=== PATIENT | male | born 1970 | race Caucasian/White ===

== ENCOUNTER 2016-07-30 21:49 | Emergency (ER) | payer MEDICAID ==
[~2016-07-30] VITALS: Ht 175.3 cm; Wt 102.0 kg
[2016-07-30] MEDS ORDERED: ACETAMINOPHEN 500 MG TABLET PO ONE (22:30)
[2016-07-30] MEDS ORDERED: SODIUM CHLORIDE 0.9% 1,000ML IVBOLUS ONE (22:30)
[2016-07-30] MEDS ORDERED: IBUPROFEN 200 MG TABLET ONE (22:39)
[2016-07-30] MEDS ORDERED: ACETAMINOPHEN 500 MG TABLET ONE (22:39)
[2016-07-30] MEDS: IBUPROFEN 200 MG TABLET PO ONE ×2 (22:42→22:45)
[2016-07-30 22:45] LABS: ASPARTATE AMINO TRANSFERASE 30 U/L (15-37); BLOOD UREA NITROGEN 11 mg/dL (7-18)
[2016-07-30 23:07] LABS: HEMOGLOBIN 13.4 g/dL (13.7-18.0)
[2016-07-31 00:32] VITALS: BP 112/68
== END 2016-07-31 00:39 | disposition home or self-care (01) ==
LOC: ED 23:59
DX: R50.9 Fever, unspecified (principal); R05 Cough; Z87.891 Personal history of nicotine dependence
CPT/HCPCS: 36415; 71010; 80053; 81003; 85025; 96360; 96361; 99285; J7030

== ENCOUNTER 2016-08-17 13:02 | Emergency (ER) | payer MEDICAID ==
[~2016-08-17] VITALS: Ht 175.3 cm; Wt 100.0 kg
[2016-08-17 13:03] VITALS: BP 140/92
[2016-08-17] MEDS ORDERED: OXYcodone/APAP 5/325MG TABLET PO ONE (14:00)
[2016-08-17] MEDS ORDERED: METHOCARBAMOL 750 MG TABLET PO ONE (14:00)
[2016-08-17] MEDS ORDERED: OXYcodone/APAP 5/325MG TABLET ONE (14:17)
[2016-08-17] MEDS ORDERED: METHOCARBAMOL 750 MG TABLET ONE (14:18)
== END 2016-08-17 15:05 | disposition home or self-care (01) ==
LOC: ED 15:04
DX: S33.5XXA Sprain of ligaments of lumbar spine, initial encounter (principal); M47.896 Other spondylosis, lumbar region; M54.41 Lumbago with sciatica, right side; W10.9XXA Fall (on) (from) unspecified stairs and steps, initial encounter; Y93.89 Activity, other specified; Y99.8 Other external cause status; Y92.099 Unspecified place in other non-institutional residence as the place of occurrence of the external cause
CPT/HCPCS: 72110; 99284

== ENCOUNTER 2016-08-20 15:33 | Inpatient (IN) | payer MEDICAID ==
[~2016-08-20] VITALS: Ht 175.3 cm; Wt 99.0 kg
[2016-08-20] MEDS ORDERED: DIAZEPAM 5 MG TABLET ONE (16:15)
[2016-08-20] MEDS ORDERED: OXYcodone/APAP 5/325MG TABLET ONE (16:15)
[2016-08-20] MEDS ORDERED: OXYcodone/APAP 5/325MG TABLET PO ONE (16:30)
[2016-08-20] MEDS ORDERED: DIAZEPAM 5 MG TABLET PO ONE (16:30)
[2016-08-20] MEDS ORDERED: SODIUM CHLORIDE 0.9% 1,000 ML IV ONE (18:13)
[2016-08-20] MEDS ORDERED: SODIUM CHLORIDE FLUSH 10ML SYR IVF ONE (18:30)
[2016-08-20] MEDS ORDERED: HYDR-3240 PO (18:35)
[2016-08-20] MEDS ORDERED: METH750T2 PO (18:35)
[2016-08-20 18:47] LABS: BLOOD UREA NITROGEN 16 mg/dL (7-18)
[2016-08-20] MEDS ORDERED: DOCUSATE 100 MG CAPSULE PO PRN (20:30)
[2016-08-20] MEDS ORDERED: BISACODYL 10 MG SUPP PR PRN (20:30)
[2016-08-20] MEDS ORDERED: ONDANSETRON ODT 4 MG PO PRN (20:30)
[2016-08-20] MEDS ORDERED: TRAZODONE 50MG TABLET PO PRN (20:30)
[2016-08-20] MEDS ORDERED: ACETAMINOPHEN 325 MG TABLET PO PRN (20:30)
[2016-08-20] MEDS ORDERED: LABETALOL 5MG/ML, 20ML IV PRN (20:30)
[2016-08-20 20:56] VITALS: BP 126/76
[2016-08-20] MEDS: SODIUM CHLORIDE 0.9% 1,000 ML IV SCH (21:08)
[2016-08-20] MEDS: DEXAMETHASONE 4 MG/ML, 1ML IVPush SCH (21:58)
[2016-08-20] MEDS: HEPARIN 5,000 UNITS/ML, 1ML SQ SCH (21:58)
[2016-08-20] MEDS: METHOCARBAMOL 750 MG TABLET PO SCH (22:19)
[2016-08-21 00:39] VITALS: BP 143/78
[2016-08-21] MEDS: HYDROcodone/APAP 5/325 TABLET PO PRN ×3 (00:46→22:23)
[2016-08-21] MEDS: DEXAMETHASONE 4 MG/ML, 1ML IVPush SCH ×4 (03:25→22:18)
[2016-08-21] MEDS: METHOCARBAMOL 750 MG TABLET PO SCH ×4 (05:09→21:52)
[2016-08-21] MEDS: HEPARIN 5,000 UNITS/ML, 1ML SQ SCH ×2 (05:09→13:00)
[2016-08-21] MEDS: SODIUM CHLORIDE 0.9% 1,000 ML IV SCH ×2 (06:07→17:57)
[2016-08-21 06:20] LABS: BLOOD UREA NITROGEN 17 mg/dL (7-18)
[2016-08-21 06:24] LABS: ASPARTATE AMINO TRANSFERASE 12 U/L (15-37)
[2016-08-21 07:11] VITALS: BP 137/77
[2016-08-21 09:58] LABS: BLOOD UREA NITROGEN 18 mg/dL (7-18)
[2016-08-21] MEDS ORDERED: BUPIVACAINE/PF-EPI 0.25% 1:200K ONE (10:52)
[2016-08-21] MEDS ORDERED: THROMBIN 5,000 UNIT VIAL TP ONE (10:52)
[2016-08-21] MEDS ORDERED: BACITRACIN 50,000 UNIT ONE (10:52)
[2016-08-21] MEDS ORDERED: FENTANYL PF 250 MCG/5ML ONE ×3 (11:51→13:16)
[2016-08-21] MEDS ORDERED: MIDAZOLAM 1 MG/ML, 2ML ONE (12:03)
[2016-08-21] MEDS ORDERED: ONDANSETRON 2MG/ML, 2ML ONE (12:25)
[2016-08-21] MEDS ORDERED: DEXAMETHASONE 4 MG/ML, 1ML ONE (12:25)
[2016-08-21] MEDS ORDERED: ROCURONIUM 10 MG/ML ONE (12:25)
[2016-08-21] MEDS ORDERED: METOCLOPRAMIDE 5 MG/ML, 2ML ONE (12:25)
[2016-08-21] MEDS ORDERED: PROPOFOL 10 MG/ML, 50ML ONE (12:25)
[2016-08-21] MEDS ORDERED: CEFAZOLIN 1,000 MG ONE (12:25)
[2016-08-21] MEDS ORDERED: LABETALOL 5MG/ML, 20ML ONE (12:25)
[2016-08-21] MEDS ORDERED: HYDROmorphone 2 MG/ML, 1ML ONE ×2 (12:56→16:16)
[2016-08-21] MEDS ORDERED: EPHEDRINE 50 MG/ML, 1ML IVPush PRN (13:30)
[2016-08-21] MEDS ORDERED: ONDANSETRON 2MG/ML, 2ML IVPush PRN (13:30)
[2016-08-21] MEDS ORDERED: METOPROLOL 1 MG/ML, 5ML IV PRN (13:30)
[2016-08-21] MEDS ORDERED: LABETALOL 5MG/ML, 20ML IV PRN (13:30)
[2016-08-21] MEDS ORDERED: ACETAMINOPHEN 325 MG TABLET PO PRN (13:30)
[2016-08-21] MEDS ORDERED: OXYcodone 5 MG/5 ML ORAL.SOL UDC PO PRN (13:30)
[2016-08-21] MEDS ORDERED: hydrALAzine 20 MG/ML, 1ML IV PRN (13:30)
[2016-08-21] MEDS ORDERED: MEPERIDINE/PF 25MG/0.5ML IVPush PRN (13:30)
[2016-08-21] MEDS ORDERED: BACITRACIN OINT 500U/GM, 15 GM ONE (15:08)
[2016-08-21] MEDS ORDERED: FENTANYL PF 100 MCG/2ML ONE (15:26)
[2016-08-21] MEDS ORDERED: OXYcodone 5 MG/5 ML ORAL.SOL UDC ONE (15:26)
[2016-08-21] MEDS ORDERED: ACETAMINOPHEN 650 MG/20.3 ML UDC ONE (15:26)
[2016-08-21] MEDS: FENTANYL PF 100 MCG/2ML IV PRN ×2 (15:40→15:50)
[2016-08-21] MEDS ORDERED: MEPERIDINE/PF 25MG/0.5ML ONE (15:46)
[2016-08-21] MEDS ORDERED: CEFAZOLIN 1,000 MG IM SCH (16:00)
[2016-08-21] MEDS: HYDROmorphone 1 MG/ML, 1ML IV PRN ×2 (16:19→16:29)
[2016-08-21 17:30] VITALS: BP 133/73
[2016-08-21 20:00] VITALS: BP 123/65
[2016-08-21] MEDS: CEFAZOLIN PMX 1GM/50ML 50 ML IV SCH (21:46)
[2016-08-22] VITALS: BP 121/80
[2016-08-22 02:00] VITALS: BP 132/75
[2016-08-22] MEDS: DEXAMETHASONE 4 MG/ML, 1ML IVPush SCH ×4 (02:50→21:09)
[2016-08-22] MEDS: SODIUM CHLORIDE 0.9% 1,000 ML IV SCH ×3 (02:50→23:50)
[2016-08-22] MEDS: CEFAZOLIN PMX 1GM/50ML 50 ML IV SCH ×3 (05:35→21:06)
[2016-08-22] MEDS: HYDROcodone/APAP 5/325 TABLET PO PRN ×3 (05:39→21:10)
[2016-08-22] MEDS: METHOCARBAMOL 750 MG TABLET PO SCH ×4 (05:39→21:09)
[2016-08-22 08:29] VITALS: BP 122/74
[2016-08-22] MEDS: DIAZEPAM 5 MG/ML, 2ML IV PRN (09:07)
[2016-08-22 13:49] VITALS: BP 109/63
[2016-08-22 18:40] VITALS: BP 133/73
[2016-08-22] MEDS: DOCUSATE 100 MG CAPSULE PO SCH (21:09)
[2016-08-23] MEDS: DIAZEPAM 5 MG/ML, 2ML IV PRN ×4 (00:24→18:27)
[2016-08-23] MEDS: HYDROcodone/APAP 5/325 TABLET PO PRN ×4 (02:47→19:45)
[2016-08-23] MEDS: DEXAMETHASONE 4 MG/ML, 1ML IVPush SCH ×4 (03:02→21:27)
[2016-08-23 03:08] VITALS: BP 127/75
[2016-08-23] MEDS: CEFAZOLIN PMX 1GM/50ML 50 ML IV SCH ×3 (05:08→21:27)
[2016-08-23] MEDS: METHOCARBAMOL 750 MG TABLET PO SCH ×4 (06:24→21:27)
[2016-08-23 07:35] VITALS: BP 131/69
[2016-08-23] MEDS: DOCUSATE 100 MG CAPSULE PO SCH ×2 (07:58→19:45)
[2016-08-23] MEDS: SODIUM CHLORIDE 0.9% 1,000 ML IV SCH ×2 (12:52→22:30)
[2016-08-23 15:25] VITALS: BP 132/79
[2016-08-23 20:01] VITALS: BP 96/57
[2016-08-24] MEDS: HYDROcodone/APAP 5/325 TABLET PO PRN ×3 (00:48→17:54)
[2016-08-24 00:56] VITALS: BP 135/85
[2016-08-24] MEDS: SODIUM CHLORIDE 0.9% 1,000 ML IV SCH ×2 (03:15→17:54)
[2016-08-24] MEDS: DEXAMETHASONE 4 MG/ML, 1ML IVPush SCH ×4 (03:15→22:05)
[2016-08-24] MEDS: DIAZEPAM 5 MG/ML, 2ML IV PRN (03:18)
[2016-08-24 06:31] LABS: BLOOD UREA NITROGEN 13 mg/dL (7-18)
[2016-08-24] MEDS: CEFAZOLIN PMX 1GM/50ML 50 ML IV SCH ×3 (06:33→22:05)
[2016-08-24] MEDS: METHOCARBAMOL 750 MG TABLET PO SCH ×4 (06:33→22:05)
[2016-08-24 07:31] VITALS: BP 96/58
[2016-08-24] MEDS: POLYETHYLENE GLYCOL 17 GM PACKET PO PRN (08:17)
[2016-08-24] MEDS: DOCUSATE 100 MG CAPSULE PO SCH ×2 (08:17→22:05)
[2016-08-24] MEDS ORDERED: DIAZEPAM 5 MG TABLET ONE (15:53)
[2016-08-24] MEDS: DIAZEPAM 10 MG TABLET PO PRN (15:59)
[2016-08-24 16:06] VITALS: BP 127/79
[2016-08-24 20:01] VITALS: BP 121/82
[2016-08-25] MEDS: HYDROcodone/APAP 5/325 TABLET PO PRN ×4 (00:31→13:00)
[2016-08-25] MEDS: DIAZEPAM 10 MG TABLET PO PRN ×2 (00:31→07:58)
[2016-08-25 03:11] VITALS: BP 132/58
[2016-08-25] MEDS: DEXAMETHASONE 4 MG/ML, 1ML IVPush SCH ×2 (04:08→07:58)
[2016-08-25] MEDS: SODIUM CHLORIDE 0.9% 1,000 ML IV SCH (04:30)
[2016-08-25] MEDS: CEFAZOLIN PMX 1GM/50ML 50 ML IV SCH ×2 (06:15→12:56)
[2016-08-25] MEDS: METHOCARBAMOL 750 MG TABLET PO SCH ×2 (06:15→11:12)
[2016-08-25] MEDS: DOCUSATE 100 MG CAPSULE PO SCH (07:58)
[2016-08-25 08:05] VITALS: BP 123/83
[2016-08-25 12:24] VITALS: BP 128/81
[2016-08-25] MEDS ORDERED: METH750T2 PO (12:49)
[2016-08-25] MEDS ORDERED: DIAZ10TA4 PO (12:49)
[2016-08-25] MEDS ORDERED: HYDR-3240 PO (12:49)
[2016-08-25] MEDS: POLYETHYLENE GLYCOL 17 GM PACKET PO PRN (13:05)
[2016-08-25] MEDS ORDERED: METOCLOPRAMIDE 5 MG/ML, 2ML IVPush ONE (14:30)
[2016-08-25 15:15] VITALS: BP 126/84
== END 2016-08-25 15:30 | disposition home or self-care (01) | DRG 516 ==
LOC: ED 19:10 → EDIP 19:15 → 3NE 20:49 → 4NOR 08-21 17:30 → DCLOUNGE 08-25 15:25
PROVIDERS: ADMIT Internal Medicine; ATTEND Internal Medicine
PROC: 01NB0ZZ Release Lumbar Nerve, Open Approach (ICD-10-PCS; principal; 2016-08-21 11:00)
DX: M48.06 Spinal stenosis, lumbar region (principal); G83.4 Cauda equina syndrome; E78.5 Hyperlipidemia, unspecified; D75.89 Other specified diseases of blood and blood-forming organs; E66.3 Overweight; M51.16 Intervertebral disc disorders with radiculopathy, lumbar region; Z82.49 Family history of ischemic heart disease and other diseases of the circulatory system; Z68.32 Body mass index [BMI] 32.0-32.9, adult
CPT/HCPCS: 36415; 72100; 72158; 80048; 80053; 80061; 82040; 83735; 84439; 84443; 85025; 85610; 86850; 86900; 93005; 99285; C1729; J0690; J1100; J1170; J1644; J2175; J2250; J2405; J2704; J3010; J3360; J2765; J7030; J7512

== ENCOUNTER 2016-09-01 17:40 | Emergency (ER) | payer MEDICAID ==
[~2016-09-01] VITALS: Ht 175.3 cm; Wt 96.2 kg
[~2016-09-01 17:40] MED LIST: DIAZ10TA4 PO; HYDR-3240 PO; METH750T2 PO
[2016-09-01 18:24] LABS: BLOOD UREA NITROGEN 11 mg/dL (7-18)
[2016-09-01 18:28] VITALS: BP 125/46
[2016-09-01] MEDS ORDERED: OXYcodone/APAP 5/325MG TABLET PO ONE (18:30)
[2016-09-01] MEDS ORDERED: DIAZEPAM 5 MG TABLET PO ONE (18:30)
[2016-09-01] MEDS ORDERED: KETOROLAC 30 MG/1 ML IM ONE (18:30)
[2016-09-01] MEDS ORDERED: DIAZEPAM 5 MG TABLET ONE (18:39)
[2016-09-01] MEDS ORDERED: OXYcodone/APAP 5/325MG TABLET ONE (18:39)
[2016-09-01] MEDS ORDERED: KETOROLAC 30 MG/1 ML ONE (18:39)
== END 2016-09-01 18:58 | disposition home or self-care (01) ==
LOC: ED 18:52
DX: G89.29 Other chronic pain (principal); M54.5 Low back pain; E78.5 Hyperlipidemia, unspecified
CPT/HCPCS: 36415; 80048; 82040; 85025; 96372; 99284; J1885

== ENCOUNTER → 2016-09-04 | Outpatient (CLI) | payer MEDICAID | END | disposition home or self-care (01) | LOC: RAD 12:50 → EDSTATUS 14:15 | PROVIDERS: ATTEND Neurological Surgery | DX: M48.07 Spinal stenosis, lumbosacral region (principal); M51.27 Other intervertebral disc displacement, lumbosacral region; M51.36 Other intervertebral disc degeneration, lumbar region; M40.46 Postural lordosis, lumbar region; L76.22 Postprocedural hemorrhage of skin and subcutaneous tissue following other procedure; M25.78 Osteophyte, vertebrae; R60.0 Localized edema; Z98.890 Other specified postprocedural states | CPT/HCPCS: 72148 ==

== ENCOUNTER → 2016-09-05 | Outpatient (CLI) | payer MEDICAID ==
[~2016-09-05] MED LIST changes: +LIDOCAINE 1%, 20ML ONE
[2016-09-05 15:42] LABS: CYTOLOGY BODY FLUID RECD INTO PATHOLOGY; CYTOLOGY BODY FLUID SOURCE ASCITES FLUID
== END | disposition home or self-care (01) ==
LOC: RAD 13:45
PROVIDERS: ATTEND Neurological Surgery
DX: L76.22 Postprocedural hemorrhage of skin and subcutaneous tissue following other procedure (principal)
CPT/HCPCS: 10030; 76942; 87070; 87075; 87205; 88112; J3490

== ENCOUNTER 2017-01-07 06:29 | Emergency (ER) | payer BC, MEDICAID ==
[~2017-01-07] VITALS: Ht 175.3 cm; Wt 95.5 kg
[~2017-01-07 06:29] MED LIST changes: -LIDOCAINE 1%, 20ML ONE
[2017-01-07] MEDS ORDERED: KETOROLAC 30 MG/1 ML ONE (06:57)
[2017-01-07] MEDS ORDERED: DIPHENHYDRAMINE 50 MG/ML, 1ML ONE (06:58)
[2017-01-07] MEDS ORDERED: METOCLOPRAMIDE 5 MG/ML, 2ML ONE (06:58)
[2017-01-07] MEDS ORDERED: SODIUM CHLORIDE FLUSH 10ML SYR IVF ONE (07:00)
[2017-01-07] MEDS ORDERED: KETOROLAC 30 MG/1 ML IVPush ONE (07:00)
[2017-01-07] MEDS ORDERED: SODIUM CHLORIDE 0.9% 1,000ML IVBOLUS ONE (07:00)
[2017-01-07] MEDS ORDERED: METOCLOPRAMIDE 5 MG/ML, 2ML IVPush ONE (07:00)
[2017-01-07] MEDS ORDERED: DIPHENHYDRAMINE 50 MG/ML, 1ML IVPush ONE (07:00)
[2017-01-07 09:24] VITALS: BP 118/73
== END 2017-01-07 09:27 | disposition home or self-care (01) ==
LOC: ED 07:30
DX: G44.039 Episodic paroxysmal hemicrania, not intractable (principal); F41.1 Generalized anxiety disorder; E78.5 Hyperlipidemia, unspecified
CPT/HCPCS: 96361; 96374; 96375; 99284; J1200; J1885; J2765; J7030

== ENCOUNTER 2017-01-19 19:25 | Emergency (ER) | payer BC ==
[~2017-01-19] VITALS: Ht 175.3 cm; Wt 101.2 kg
[2017-01-19 19:27] VITALS: BP 129/77
[2017-01-19] MEDS ORDERED: DIAZEPAM 5 MG TABLET PO ONE (20:00)
[2017-01-19] MEDS ORDERED: KETOROLAC 30 MG/1 ML IM ONE (20:00)
[2017-01-19] MEDS ORDERED: KETOROLAC 30 MG/1 ML ONE (20:07)
[2017-01-19] MEDS ORDERED: DIAZEPAM 5 MG TABLET ONE (20:07)
== END 2017-01-19 20:54 | disposition home or self-care (01) ==
LOC: ED 20:30
DX: S16.1XXA Strain of muscle, fascia and tendon at neck level, initial encounter (principal); G89.11 Acute pain due to trauma; V43.52XA Car driver injured in collision with other type car in traffic accident, initial encounter; Y93.89 Activity, other specified; Y92.410 Unspecified street and highway as the place of occurrence of the external cause; Y99.8 Other external cause status
CPT/HCPCS: 72125; 96372; 99284; J1885

== ENCOUNTER 2017-05-26 04:40 | Emergency (ER) | payer BC, OTHER ==
[~2017-05-26] VITALS: Ht 165.1 cm; Wt 105.1 kg
[2017-05-26 04:41] VITALS: BP 162/90
[2017-05-26] MEDS ORDERED: HYDROmorphone 2 MG/ML, 1ML ONE (05:21)
[2017-05-26] MEDS ORDERED: HYDROmorphone 1 MG/ML, 1ML IM ONE (05:30)
[2017-05-26] MEDS ORDERED: OXYCODONE (05:31)
[2017-05-26] MEDS ORDERED: OXYcodone/APAP 10/325MG TABLET PO ONE (06:00)
[2017-05-26] MEDS ORDERED: OXYcodone/APAP 10/325MG TABLET ONE (06:02)
== END 2017-05-26 07:30 | disposition home or self-care (01) ==
LOC: ED 07:08
DX: M25.512 Pain in left shoulder (principal); E78.5 Hyperlipidemia, unspecified
CPT/HCPCS: 96372; 99283; J1170

== ENCOUNTER 2017-05-28 10:32 | Emergency (ER) | payer OTHER ==
[~2017-05-28] VITALS: Ht 175.3 cm; Wt 104.8 kg
[~2017-05-28 10:32] MED LIST changes: +OXYCODONE
[2017-05-28] MEDS ORDERED: ONDANSETRON 2MG/ML, 2ML ONE ×2 (11:51→13:03)
[2017-05-28] MEDS ORDERED: HYDROmorphone 2 MG/ML, 1ML IVPush PRN (12:00)
[2017-05-28] MEDS ORDERED: SODIUM CHLORIDE FLUSH 10ML SYR IVF ONE ×2 (12:00→13:00)
[2017-05-28] MEDS ORDERED: SODIUM CHLORIDE 0.9% 1,000ML IVBOLUS ONE ×2 (12:00→13:00)
[2017-05-28] MEDS ORDERED: ONDANSETRON 2MG/ML, 2ML IVPush ONE ×3 (12:00→13:00)
[2017-05-28 12:12] LABS: BASOPHILS # (AUTO) 0.06 x10^3/uL (0-0.1); BASOPHILS % (AUTO) 1 % (0-1); EOSINOPHILS # (AUTO) 0.25 x10^3/uL (0-0.4); EOSINOPHILS % (AUTO) 3 % (1-7); LYMPHOCYTES # (AUTO) 2.27 x10^3/uL (1-3.4); LYMPHOCYTES % (AUTO) 24 % (22-44); MD NO; MEAN CORPUSCULAR HGB CONC 33.7 g/dL (33.2-36.2); MEAN CORPUSCULAR VOLUME 91.9 fL (81-97); MEAN PLATELET VOLUME 6.8 fL (7.4-10.4); MONOCYTES # (AUTO) 0.72 x10^3/uL (0.2-0.8); MONOCYTES % (AUTO) 8 % (2-9); NEUTROPHILS # (AUTO) 6.34 x10^3/uL (1.8-6.8); NEUTROPHILS % (AUTO) 66 % (42-75); PLATELET COUNT 322 x10^3/uL (130-400); RED BLOOD COUNT 4.53 x10^6/uL (4.38-5.82)
[2017-05-28 12:24] LABS: ALBUMIN 3.1 g/dL (3.4-5.0); ANION GAP 6 mmol/L (5-15); CALCIUM 8.2 mg/dL (8.5-10.1); CHLORIDE 103 mmol/L (98-107)
[2017-05-28 12:29] LABS: ALANINE AMINOTRANSFERASE 19 U/L (12-78); ALKALINE PHOSPHATASE 63 U/L (45-117); BILIRUBIN,TOTAL 0.6 mg/dL (0.2-1.0); CREATININE 0.94 mg/dL (0.7-1.3); TOTAL PROTEIN 6.4 g/dL (6.4-8.2)
[2017-05-28] MEDS ORDERED: HYDROmorphone 2 MG/ML, 1ML ONE (13:03)
[2017-05-28 13:09] VITALS: BP 114/66
== END 2017-05-28 14:44 | disposition home or self-care (01) ==
LOC: ED 12:47
DX: K29.00 Acute gastritis without bleeding (principal); E78.5 Hyperlipidemia, unspecified
CPT/HCPCS: 36415; 80053; 85025; 96361; 96374; 96375; 96376; 99285; J1170; J2405; J7030

== ENCOUNTER 2017-08-03 18:11 | Emergency (ER) | payer OTHER ==
[~2017-08-03] VITALS: Ht 175.3 cm; Wt 100.0 kg
[2017-08-03 18:12] VITALS: BP 145/92
[2017-08-03] MEDS ORDERED: IBUPROFEN 200 MG TABLET PO ONE (18:30)
[2017-08-03] MEDS ORDERED: OXYcodone/APAP 5/325MG TABLET PO ONE (18:30)
[2017-08-03] MEDS ORDERED: CITA40TA12 PO (18:33)
[2017-08-03] MEDS ORDERED: IBUPROFEN 200 MG TABLET ONE (18:34)
[2017-08-03] MEDS ORDERED: OXYcodone/APAP 5/325MG TABLET ONE (18:35)
== END 2017-08-03 18:48 | disposition home or self-care (01) ==
LOC: ED 18:45
DX: S46.001A Unspecified injury of muscle(s) and tendon(s) of the rotator cuff of right shoulder, initial encounter (principal); X50.9XXA Other and unspecified overexertion or strenuous movements or postures, initial encounter; Y93.89 Activity, other specified; Y99.8 Other external cause status; Y92.89 Other specified places as the place of occurrence of the external cause; F41.9 Anxiety disorder, unspecified
CPT/HCPCS: 99283

== ENCOUNTER 2018-03-29 20:01 | Emergency (ER) | payer SELFPAY ==
[~2018-03-29] VITALS: Ht 175.3 cm; Wt 111.0 kg
[~2018-03-29 20:01] MED LIST changes: +CITA40TA12 PO
[2018-03-29] MEDS ORDERED: KETOROLAC 30 MG/1 ML ONE (20:16)
[2018-03-29] MEDS ORDERED: METOCLOPRAMIDE 5 MG/ML, 2ML ONE (20:16)
[2018-03-29] MEDS ORDERED: SUMATRIPTAN 6MG/0.5ML SQ ONE ×2 (20:16→20:30)
[2018-03-29] MEDS ORDERED: DIPHENHYDRAMINE 50 MG/ML, 1ML ONE (20:16)
[2018-03-29] MEDS ORDERED: DEXAMETHASONE 4 MG/ML, 1ML ONE (20:16)
[2018-03-29] MEDS ORDERED: METOCLOPRAMIDE 5 MG/ML, 2ML IVPush ONE (20:30)
[2018-03-29] MEDS ORDERED: SODIUM CHLORIDE FLUSH 10ML SYR IVF ONE (20:30)
[2018-03-29] MEDS ORDERED: KETOROLAC 30 MG/1 ML IVPush ONE (20:30)
[2018-03-29] MEDS ORDERED: DEXAMETHASONE 12 MG in SODIUM CHLORIDE 0.9% 50 ML IV ONE (20:30)
[2018-03-29] MEDS ORDERED: DEXAMETHASONE 4 MG/ML, 1ML IVPush ONE (20:30)
[2018-03-29] MEDS ORDERED: DIPHENHYDRAMINE 50 MG/ML, 1ML IVPush ONE (20:30)
[2018-03-29 21:14] VITALS: BP 129/71
== END 2018-03-29 21:46 | disposition home or self-care (01) ==
LOC: ED 21:08
DX: G43.C0 Periodic headache syndromes in child or adult, not intractable (principal); E78.5 Hyperlipidemia, unspecified
CPT/HCPCS: 96365; 96372; 96375; 99283; J1100; J1200; J1885; J2765; J3030

== ENCOUNTER 2018-04-23 18:18 | Emergency (ER) | payer MEDICAID, OTHER ==
[~2018-04-23] VITALS: Ht 175.3 cm; Wt 110.1 kg
[2018-04-23] MEDS ORDERED: SODIUM CHLORIDE FLUSH 10ML SYR IVF ONE (19:00)
[2018-04-23] MEDS ORDERED: DIPHENHYDRAMINE 50 MG/ML, 1ML IVPush ONE (19:00)
[2018-04-23] MEDS ORDERED: KETOROLAC 30 MG/1 ML IVPush ONE (19:00)
[2018-04-23] MEDS ORDERED: METOCLOPRAMIDE 5 MG/ML, 2ML IVPush ONE (19:00)
--- NOTE | 2018-04-23 19:16 | NUR ---
Diann vasquez in [facility] - 04/23/18 at 1922 by ELLIOTT RESPONDER: NOT IN LOBBY
--- NOTE | 2018-04-23 19:16 | NUR ---
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
--- NOTE | 2018-04-23 19:23 | NUR ---
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
[2018-04-23] MEDS ORDERED: KETOROLAC 30 MG/1 ML ONE (19:44)
[2018-04-23] MEDS ORDERED: DIPHENHYDRAMINE 50 MG/ML, 1ML ONE (19:44)
[2018-04-23] MEDS ORDERED: METOCLOPRAMIDE 5 MG/ML, 2ML ONE (19:44)
--- NOTE | 2018-04-23 19:57 | NUR ---
PT AMBULATORY TO ROOM 40 W/ C/O MIGRAINE RODRIGUEZ STARTED 2 HRS AGO. PT ALSO HAS C/O BLURRED VISION, PHOTOSENSITIVITY AND NAUSEA W/ EMESIS. [facility] PIV INITIATED AND MEDICATED PER JUN.
--- NOTE | 2018-04-23 20:23 | NUR ---
PT VERBALIZES RODRIGUEZ MUCH IMPROVED AFTER ADMINISTRATION OF MEDICATIONS PER MAR.
--- NOTE | 2018-04-23 21:01 | NUR ---
REPORT GIVEN TO STEFANY SAAB.
[2018-04-23 21:43] VITALS: BP 135/74
== END 2018-04-23 21:46 | disposition home or self-care (01) ==
LOC: ED 20:36
DX: G43.019 Migraine without aura, intractable, without status migrainosus (principal); E78.5 Hyperlipidemia, unspecified; F41.1 Generalized anxiety disorder
CPT/HCPCS: 96374; 96375; 99283; J1200; J1885; J2765

== ENCOUNTER 2018-07-01 16:02 | Emergency (ER) | payer MEDICAID ==
[~2018-07-01] VITALS: Ht 175.3 cm; Wt 107.0 kg
--- NOTE | 2018-07-01 18:03 | NUR ---
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
[2018-07-01] MEDS ORDERED: KETOROLAC 30 MG/1 ML ONE (18:41)
--- NOTE | 2018-07-01 18:50 | NUR ---
PT. IS A & O X 4 WITH C/O RODRIGUEZ PAIN. PT.'S PUPILS ARE KIRAN. NEUROASSESSMENT IS INTACT. LUNGS ARE CTA. MM ARE PINK AND MOIST WITH PULSES + 2 THROUGHOUT. PT. WAS MEDICATED FOR PAIN ORDERED. PT. WAS GIVEN A BLANKET FOR WARMTH. PT. IS RESTING AT THIS TIME. REPORT GIVEN TO ADONAY MCCALL.
[2018-07-01] MEDS ORDERED: KETOROLAC 30 MG/1 ML IM ONE (19:00)
--- NOTE | 2018-07-01 19:00 | NUR ---
REPORT FROM BRIGID MCCALL. PT RESTING WITH NO NEEDS AT THIS TIME. CALL LIGHT IN REACH
--- NOTE | 2018-07-01 20:02 | NUR ---
Patient given discharge instructions and they have confirmed that they understand the instructions. Patient ambulatory with steady gait.
[2018-07-01 20:03] VITALS: BP 125/74
== END 2018-07-01 20:05 | disposition home or self-care (01) ==
LOC: ED 19:58
DX: G44.209 Tension-type headache, unspecified, not intractable (principal); G43.909 Migraine, unspecified, not intractable, without status migrainosus
CPT/HCPCS: 96372; 99283; J1885

== ENCOUNTER → 2020-10-03 | Outpatient (CLI) | payer OTHER ==
[~2020-10-03] MED LIST changes: +HYDR-2214 PO; -HYDR-3240 PO; +METH-640 PO; -METH750T2 PO
== END | disposition home or self-care (01) ==
LOC: RAD 12:38
PROVIDERS: ATTEND Physician Assistant Surgical
DX: M51.36 Other intervertebral disc degeneration, lumbar region (principal); M25.78 Osteophyte, vertebrae; M41.86 Other forms of scoliosis, lumbar region
CPT/HCPCS: 72110